=== PATIENT | female | born 1965 | race Caucasian/White ===

== ENCOUNTER → 2017-12-13 | Outpatient (CLI) | payer OTHER ==
--- NOTE | 2017-12-13 11:38 | XR ---
EXAMINATION TYPE: XR chest 2V DATE OF EXAM: 12/13/2017 COMPARISON: 08/23/2010 HISTORY: Left-sided chest pain. TECHNIQUE: Frontal and lateral views of the chest are obtained. FINDINGS: There is no focal air space opacity, pleural effusion, or pneumothorax seen. The cardiac silhouette size is within normal limits. The osseous structures are intact. Relating artifact from the patient's hair tie is seen within the left axilla. Minimal multilevel degenerative changes of the thoracic spine are noted. IMPRESSION: No acute cardiopulmonary process.
== END | disposition home or self-care (01) ==
LOC: RADXRMAIN 11:13
PROVIDERS: ATTEND Family Medicine
DX: R07.81 Pleurodynia (principal); R07.9 Chest pain, unspecified
CPT/HCPCS: 71046

== ENCOUNTER → 2018-08-17 | Outpatient (CLI) | payer OTHER ==
--- NOTE | 2018-08-19 09:12 | MM ---
Reason for exam: screening (asymptomatic). Last mammogram was performed 3 years and 10 months ago. History: Family history of breast cancer in mother at age 60. Retro-pectoral saline implants in both breasts, 1998. MG 3D Screen Mammo Imp/Cad Bilateral CC and MLO view(s) were taken. Prior study comparison: October 23, 2014, bilateral MG screening mammo w CAD. October 10, 2009, mammogram, performed at [facility]. The breast tissue is heterogeneously dense. This may lower the sensitivity of mammography. Bilateral breast implants are noted. No significant changes when compared with prior studies. ASSESSMENT: Benign, BI-RAD 2 RECOMMENDATION: Routine screening mammogram of both breasts in 1 year.
== END | disposition home or self-care (01) ==
LOC: RADMAMWWP 08:20
PROVIDERS: ATTEND Family Medicine
DX: Z12.31 Encounter for screening mammogram for malignant neoplasm of breast (principal); Z78.0 Asymptomatic menopausal state
CPT/HCPCS: 77063; 77067

== ENCOUNTER → 2018-08-17 | Outpatient (CLI) | payer OTHER ==
--- NOTE | 2018-08-17 08:31 | BD ---
EXAMINATION TYPE: Axial Bone Density DATE OF EXAM: 08/17/2018 COMPARISON: NONE CLINICAL HISTORY: post menopausal Height: 5'2 1/2 Weight: 163 FRAX RISK QUESTIONS: History of Fracture in Adulthood: y Secondary Osteoporosis: RISK FACTORS HISTORY OF: Hip Fracture (/right): When: 2000 If Premenopausal, do you have irregular periods: y MEDICATIONS: Additional Medications: Additional History: EXAM MEASUREMENTS: Bone mineral densitometry was performed using the [employer]. Bone mineral density as measured about the Lumbar spine is: ----- L1-L4(G/cm2): 1.384 T Score Values are as follows: ----- L2: 1.7 ----- L3: 2.1 ----- L4: 1.7 ----- L1-L4: 1.7 Bone mineral density about the L hip (g/cm2): 1.101 T Score values are as follows: -----L Neck: 0.8 -----L Total: 0.7 IMPRESSION: Normal (Values between +1 and -1 indicate normal bone mass). Consider repeating this study in 5 year s or sooner if there is some new clinical indication. NOTE: T-SCORE=SD OF THE YOUNG ADULT MEAN.
== END | disposition home or self-care (01) ==
LOC: RADBDWWP 07:52
PROVIDERS: ATTEND Family Medicine
DX: Z78.0 Asymptomatic menopausal state (principal); Z98.82 Breast implant status
CPT/HCPCS: 77080

== ENCOUNTER 2019-06-07 08:31 | Emergency (ER) | payer OTHER ==
[2019-06-07 08:38] VITALS: BP 122/75; PULSE 75; RESP 18; TEMP 98.8
--- NOTE | 2019-06-07 09:16 | ED ---
Recheck HPI - General Chief Complaint: Needlestick/Exposure Stated Complaint: NEEDLESTICK Time Seen by Provider: 06/07/19 08:35 Source: patient Mode of arrival: ambulatory Limitations: no limitations - History of Present Illness Initial Comments: 53-year-old female presenting today for chief complaint of needle stick. Patient states she stuck the base of her left thumb near the webspace. Patient states she does not know of any known HIV or hepatitis in the patient. Source blood tested. Patient presenting for testing. Denies any other complaints she extensively cleansed the area. - Related Data Home Medications Medication Instructions Recorded Confirmed Cetirizine HCl/Pseudoephedrine 1 each PO DIRECTED 06/06/15 06/08/15 [Zyrtec-D Tablet] Fluticasone Nasal [place] [Flonase 3 spray EA NOSTRIL DAILY 06/06/15 06/08/15 Nasal [place]] Naproxen Sodium [Aleve] 220 mg PO Q12HR PRN 06/06/15 06/08/15 Previous Rx's Medication Instructions Recorded Hydrocodone/Acetaminophen [[place] 1 - 2 each PO Q4HR PRN #30 tab 06/08/15 5-325] Allergies Allergy/AdvReac Type Severity Reaction Status Date / Time No Known Allergies Allergy Verified 06/07/19 08:35 Review of Systems ROS Statement: Those systems with pertinent positive or pertinent negative responses have been documented in the HPI. ROS Other: All systems not noted in ROS Statement are negative. Past Medical History Past Medical History: GERD/Reflux, Hyperlipidemia, Sleep Apnea/CPAP/BIPAP Additional Past Medical History / Comment(s): migraines, varicose veins, SOB then gets "panic attack feelings"-no cpap used, diarrhea, 'inflammed bowels", a lot of gas, "elevated pancreas", high triglycerides History of Any Multi-Drug Resistant Organisms: None Reported Past Surgical History: Breast Surgery, Section, Orthopedic Surgery, Tubal Ligation Additional Past Surgical History / Comment(s): ORIF rt ankle, breast augmentation, laproscopy, Past Anesthesia/Blood Transfusion Reactions: Motion Sickness Past Psychological History: No Psychological Hx Reported Smoking Status: Former smoker Past Alcohol Use History: None Reported Past Drug Use History: None Reported - Past Family History Mother Family Medical History: Cancer, Deep Vein Thrombosis (DVT) General Exam - General Exam Comments Initial Comments: General: The patient is awake and alert, in no distress, and does not appear acutely ill. Eye: Pupils are equal, round and reactive to light, extra-ocular movements are intact. No nystagmus. There is normal conjunctiva bilaterally. No signs of icterus. Cardiovascular: There is a regular rate and rhythm. No murmur, rub or gallop is appreciated. Musculoskeletal: Normal ROM, no tenderness. Strength 5/5. Sensation intact. Radial pulses equal bilaterally 2+. Neurological: A&O x 3. CN II-XII intact grossly, There are no obvious motor or sensory deficits. Coordination appears grossly intact. Speech is normal. Skin: Skin is warm and dry and no rashes or obvious lesion identified, likely very small puncture Psychiatric: Cooperative, appropriate mood & affect, normal judgment. Limitations: no limitations Course Vital Signs 06/07/19 08:35 Temperature 98.8 F Pulse Rate 75 Respiratory 18 Rate Blood Pressure 122/75 O2 Sat by Pulse 95 Oximetry Medical Decision Making - Medical Decision Making 53-year-old female presenting for testing after needle stick exposure. Source blood tested negative for HIV and hepatitis. Patient discharged, results pending of personal testing. Disposition Clinical Impression: Needlestick injury of finger of left hand Disposition: HOME SELF-CARE Condition: Good Instructions (If sedation given, give patient instructions): Body Substance Exposure (ED) Additional Instructions: Please use medication as discussed. Please follow-up with family doctor in the next 2 days.. Please return to emergency room if the symptoms increase or worsen or for any other concerns. Is patient prescribed a controlled substance at d/c from ED?: No Referrals: Palomo More MD [Primary Care Provider] - 1-2 days Time of Disposition: 09:15
== END 2019-06-07 09:19 | disposition home or self-care (01) ==
LOC: EC 08:31
DX: Z77.21 Contact with and (suspected) exposure to potentially hazardous body fluids (principal); Z87.891 Personal history of nicotine dependence; W46.0XXA Contact with hypodermic needle, initial encounter; Y99.0 Civilian activity done for income or pay
CPT/HCPCS: 99283

== ENCOUNTER → 2023-08-18 | Outpatient (CLI) | payer BC ==
--- NOTE | 2023-08-18 13:54 | FL ---
EXAMINATION TYPE: FL UGI air w small bowel DATE OF EXAM: 08/18/2023 COMPARISON: NONE HISTORY: 57-year-old female R1 0.13, epigastric pain TECHNIQUE: A double contrast UGI study is performed with small bowel follow through. A total of 2 m inutes 42 seconds of fluoroscopic time was utilized during procedure and 67 images obtained. Total d ose area product (DAP) in uGy*m?, mGy*cm? (or similar): 20. FINDINGS: [employer] image of the abdomen shows no gross abnormality. There is scattered mild to moderate stool. Multiple pelvic phleboliths. The cervical esophagus shows mild to moderate thickening of the cricopharyngeus muscle. The esophagus otherwise shows normal course and caliber. No abnormal filling defect or mucosal lesion is seen. There is mild dysmotility with blunted secondary stripping waves. When the patient is prone to supine , there is some prolonged pooling of contrast in the mid esophagus. There is a small sliding hiatal hernia and mild gastroesophageal reflux seen during the course of the exam. The stomach shows normal distensibility, peristalsis, and mucosal folds. Some initial small round fi lling defects clear on later imaging suggesting air bubbles from the effervescent granules. No eviden ce of any mass or ulcer disease. The duodenal bulb and sweep are unremarkable. The small bowel study shows normal transit to the colon at approximately 30 minutes. There is normal mucosal fold pattern throughout the small bowel. There is no evidence of any strictu re or filling defect noted. The terminal ileum and visualized appendix are unremarkable. IMPRESSION: 1. Small sliding hiatal hernia and mild gastroesophageal reflux. 2. Mild to moderate thickening of the cricopharyngeus muscle. 3. Otherwise, unremarkable upper GI examination and small bowel follow-through.
== END | disposition home or self-care (01) ==
LOC: RADFLMAIN 07:59
PROVIDERS: ATTEND Family Medicine
DX: K21.9 Gastro-esophageal reflux disease without esophagitis (principal); K44.9 Diaphragmatic hernia without obstruction or gangrene
CPT/HCPCS: 74240; 74248

== ENCOUNTER → 2024-06-24 | Outpatient (CLI) | payer SELFPAY ==
--- NOTE | 2024-06-24 08:19 | CTL ---
EXAMINATION TYPE: CT Low Dose Lung DATE OF EXAM: 06/24/2024 6:56 AM COMPARISON: None. CLINICAL INDICATION: Female, 58 years old with history of Z12.2 Z87.891; lung CA screening, nodules, history of covid, history of tobacco use. TECHNIQUE: Multiple axial non-contrast scans were obtained from approximately the lung apices through the upper abdomen. Coronal and sagittal reformatted images were obtained. Low dose technique was uti lized. MIP were created on a separate workstation and submitted for review. CT DLP: 95.8 mGycm, Automated exposure control for dose reduction was used. CT Contrast: Contrast used: None Oral contrast used: None FINDINGS: Lack of intravenous contrast and low dose technique limits the evaluation of the vascular and soft ti ssue structures. LUNGS: No evidence of pulmonary fibrosis. No evidence of focal consolidation, pneumothorax or pleural effusion. Centrilobular emphysema changes. Nodules: RUL: None. RML: 3 mm series 5 image 34. RLL: Intrafissural lymph node series 5 image 41 r3 mm nodule series 5 image 38 CONSTANTINO: None. LLL: 3 mm series 5 image 34. AIRWAY: Patent and unremarkable. HEART: Size within normal limits.Atherosclerosis of the arterial vasculature. MEDIASTINUM: No gross evidence of adenopathy. VASCULATURE: No aortic aneurysm. MUSCULOSKELETAL: Mild disc degeneration changes are present throughout the thoracolumbar spine. SOFT TISSUES/LYMPH NODES: Unremarkable. LOWER NECK: No significant findings. UPPER ABDOMEN: No significant findings. IMPRESSION: 1. No clinically significant pulmonary nodules. 2. Mild emphysema. CT LUNG RAD AND CT CHEST RECOMMENDATION: Lung-Rad 2 Benign Appearance or Behavior: Continue annual sc reening with LDCT in 12 months. S Modifier (other clinically significant findings): None Recommend smoking cessation (if current smoker), or continuation of smoking cessation (if prior smoke r). Annual screening for lung cancer with low-dose computed tomography is recommended in adults ages 55 to 77 years who have a 30 pack-year smoking history and currently smoke or have quit within the pa st 15 years. Screening should be discontinued once a person has not smoked for 15 years or develops a health problem that substantially limits life expectancy or the ability or willingness to have curat allyssa lung surgery. Lung rads 2021 [email or web address] [facility], , 06/24/2024 8:16 AM
== END | disposition home or self-care (01) ==
LOC: RADCTMAIN 06:27
PROVIDERS: ATTEND Internal Medicine Critical Care Medicine
DX: Z12.2 Encounter for screening for malignant neoplasm of respiratory organs (principal); J43.2 Centrilobular emphysema; Z87.891 Personal history of nicotine dependence
CPT/HCPCS: 71271